=== PATIENT | female | born 1970 | race Caucasian/White ===

== ENCOUNTER 2018-12-27 17:52 | Emergency (ER) | payer OTHER ==
[~2018-12-27] VITALS: Ht 172.7 cm; Wt 117.9 kg
[2018-12-27 18:20] VITALS: Ht 172.7 cm; Wt 117.9 kg
[2018-12-27 20:41] LABS: BASOPHIL % 0.7 % (0-2); PLATELET COUNT 344 x10^3mcL (130-400); RED CELL DISTRIBUTION WIDTH 13.8 % (11.5-14.5)
[2018-12-27 21:01] LABS: CALCIUM 8.9 mg/dL (8.5-10.1); CHLORIDE SERUM 99 mmol/L (98-107); CREATININE SERUM 0.8 mg/dL (0.6-1.0); GFR1 > 60 mL/min; POTASSIUM SERUM 4.1 mmol/L (3.5-5.1); SODIUM SERUM 134 mmol/L (136-145)
[2018-12-27 21:03] LABS: GLUCOSE SERUM 453 mg/dL (74-106)
[2018-12-27 22:41] VITALS: BP 161/89
[2018-12-30 04:09] LABS: RAPID PLASMA REAGIN Non Reactive (Non Reactive)
== END 2018-12-27 22:41 | disposition home or self-care (01) ==
LOC: ED 17:52
PROVIDERS: Emergency Medicine
DX: R73.9 Hyperglycemia, unspecified (principal); B37.2 Candidiasis of skin and nail; L30.9 Dermatitis, unspecified
CPT/HCPCS: 82962; J1200; J1815; J7030